=== PATIENT | female | born 1975 | race Caucasian/White ===

== ENCOUNTER 2021-12-03 14:50 | Emergency (ER) | payer SELFPAY ==
--- NOTE | 2021-12-03 14:59 | ED.SKABFB ---
HPI - Skin/Abscess/Foreign Bdy General Chief complaint: Wound/Laceration Stated complaint: Skin Problem Time Seen by Provider: 12/03/21 15:21 Source: patient and RN notes reviewed Mode of arrival: ambulatory Limitations: no limitations History of Present Illness HPI narrative: 46-year-old female presents concern for boils to the left groin. Reports history of hydradenitis suppurativa. Reports these areas have been there for 1 week, are very large and painful. Reports 1 has a yellow center. She denies any drainage from the areas. Denies fever, body aches, chills, sweats. complaint: abscess/boil Related Data Home Medications Medication Instructions Recorded Confirmed aspirin 325 mg PO DAILY 12/03/21 12/03/21 cetirizine [Zyrtec] 10 mg PO DAILY 12/03/21 12/03/21 Allergies Allergy/AdvReac Type Severity Reaction Status Date / Time No Known Allergies Allergy Verified 12/03/21 15:09 Review of Systems Review of Systems: CONSTITUTIONAL: Denies malaise, chills, sweats, or fever. EYES: Denies redness, or discharge. SKIN: Reports boils in the left groin MUSCULOSKELETAL: Denies joint pain or myalgia. NEUROLOGIC: Denies headache. All systems reviewed & are unremarkable except as noted in HPI and below PMFSH Comments At time of signature, agree with nursing past medical, surgical, social and family history. There is no relevant family history pertinent to the presenting complaint Exam Narrative: GENERAL: Well-appearing, well-nourished, and in no acute distress. HEAD: Normocephalic, atraumatic. EYES: PERRLA, conjunctivae clear, and EOMI. ENT: Mucous membranes moist. Oropharynx without edema, erythema or lesions. NECK: Supple. No lymphadenopathy CHEST: Clear to auscultation. No respiratory distress. HEART: Regular rate and rhythm. SKIN: Warm, dry. 2 raised erythematous, indurated areas with fluctuation noted to the left groin. The areas are confluent in total approximately 6 x 4 cm NEURO: Alert and oriented x3. PSYCH: Normal mood and affect Course Course Emergency Course: Patient does not have health insurance and requested that we not send a culture of her wound due to the cost. Patient understands that she could be placed on antibiotic that may be resistant. Patient is aware of diagnosis, understands and agrees to treatment plan. Anticipatory guidance given. Patient agrees to follow-up as directed and is aware of reasons to seek care at the emergency department. Portions of this record may have been created with voice recognition software Level of Care: Express Care Visit Vital Signs Vital signs: Reviewed. Procedures Abscess I/D other: Date of Incision: 12/03/21 Time of Incision: 15:34 Side (if applicable): left Sedation/analgesia: none Local Anesthetic: lidocaine 1% Amount of anesthesia used (mL): 3 Technique: incised with #11 blade Amount of fluid expressed (mL): 4 Irrigation: Yes Packing used?: plain I&D Results: Pus Abcess I&D Additional Comments: 2 incisions made for 2 confluent abscess this. The proximal abscess had purulent drainage, the distal abscess had no drainage. Packing applied into the proximal abscess MDM - Skin/Abscess/Foreign Bdy MDM Narrative Medical decision making narrative: Verbal consent was obtained. The indication for the procedure was clinical suspicion for an abscess. The region was anesthetized with 1% lidocaine. The most fluctuant portions of the abscesses were incised with an 11 blade scalpel. The abscess cavities were explored and evacuated, all loculations were broken up with a curved hemostat. The proximal cavity was then packed with packing material and dressed with a clean gauze dressing. I was present for this entire procedure and there were no complications Critical Care Time Critical Care Time Critical Care Time: No Discharge Plan Discharge Clinical Impression: Encounter for incision and
[2021-12-03 15:00] VITALS: BP 112/72; PULSE 106; RESP 20; TEMP 36.7; O2SAT 96
== END 2021-12-03 16:03 | disposition home or self-care (01) ==
PROVIDERS: Emergency Provider Nurse Practitioner
DX: L02.214 Cutaneous abscess of groin (principal); I25.2 Old myocardial infarction; Z79.82 Long term (current) use of aspirin
CPT/HCPCS: 10061; 99213; G0463